=== PATIENT | female | born 1935 | race Caucasian/White ===

== ENCOUNTER 2019-05-19 10:02 | Emergency (ER) | payer SELFPAY ==
[~2019-05-19] VITALS: Ht 167.6 cm; Wt 61.0 kg
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
[2019-05-19] MEDS ORDERED: PLEASE ENTER HEIGHT AND WEIGHT MC SCH (10:30)
[2019-05-19] MEDS ORDERED: SODIUM CHLORIDE FLUSH 10ML SYR IVF ONE (10:30)
[2019-05-19] MEDS ORDERED: SODIUM CHLORIDE 0.9% 1,000ML IVBOLUS ONE (10:30)
--- NOTE | 2019-05-19 10:31 | NUR ---
CXR AT BEDSIDE
--- NOTE | 2019-05-19 10:35 | NUR ---
REPORT TO OLEGARIO GONZALEZ
[2019-05-19] MEDS ORDERED: LORA-445 PO (10:44)
[2019-05-19] MEDS ORDERED: ACET325T14 PO (10:44)
[2019-05-19 10:48] LABS: BASOPHILS # (AUTO) 0.05 x10^3/uL (0-0.1); BASOPHILS % (AUTO) 1 % (0-1); EOSINOPHILS # (AUTO) 0.27 x10^3/uL (0-0.4); EOSINOPHILS % (AUTO) 3 % (1-7); LYMPHOCYTES # (AUTO) 1.61 x10^3/uL (1-3.4); LYMPHOCYTES % (AUTO) 16 % (22-44); MD NO; MEAN CORPUSCULAR HEMOGLOBIN 32.1 pg (27.0-34.8); MEAN CORPUSCULAR HGB CONC 32.8 g/dL (32.4-35.8); MEAN CORPUSCULAR VOLUME 97.9 fL (80-100); MEAN PLATELET VOLUME 7.8 fL (7.4-10.4); MONOCYTES # (AUTO) 0.57 x10^3/uL (0.2-0.8); MONOCYTES % (AUTO) 6 % (2-9); NEUTROPHILS # (AUTO) 7.63 x10^3/uL (1.8-6.8); NEUTROPHILS % (AUTO) 75 % (42-75); PLATELET COUNT 270 x10^3/uL (130-400); RED BLOOD COUNT 4.12 x10^6/uL (3.82-5.3); RED CELL DISTRIBUTION WIDTH 14.8 % (9.6-15.2)
[2019-05-19 10:56] LABS: ALBUMIN 3.1 g/dL (3.4-5.0); ANION GAP 6 mmol/L (5-15); CALCIUM 8.3 mg/dL (8.5-10.1); CHLORIDE 102 mmol/L (98-107)
--- NOTE | 2019-05-19 11:06 | NUR ---
IVF INFUSING PER ERP ORDER. ALL RESULTS BACK, PT FOR RECHECK.
--- NOTE | 2019-05-19 11:35 | NUR ---
THROUGHPUT RN: SPOKE W/ [facility], PT'S TECH AT [facility]. [facility] NOTIFIED PT WILL BE TRANSFERRED AT 1230 BY [facility].
--- NOTE | 2019-05-19 11:52 | NUR ---
DISCHARGE INSTRUCTS GIVEN TO PT. DAUGHTER (DANO) CALLED AND GIVEN INSTRUCTIONS WELL. AWAITING TRANSPORT TO [facility] Addendum: 05/19/19 at 1157 by PHILLIP PT'S SWEATER AND SHIRT WITH [facility] ON IT. SWEATER PROVIDED FROM [employer] [facility]. SOILED CLOTHES PLACED IN RED BAG.
[2019-05-19 11:56] VITALS: BP 128/81
== END 2019-05-19 12:32 | disposition home or self-care (01) ==
LOC: ED 10:57
DX: R11.2 Nausea with vomiting, unspecified (principal); E86.0 Dehydration
CPT/HCPCS: 36415; 71045; 80048; 82040; 85025; 99284; J7030